=== PATIENT | female | born 1965 | race African-American/Black ===

== ENCOUNTER 2019-08-16 18:34 | Emergency (ER) | payer OTHER ==
[~2019-08-16] VITALS: Ht 157.5 cm; Wt 93.0 kg
[2019-08-16] MEDS ORDERED: FORTAMET500 MG (18:53)
[2019-08-16] MEDS ORDERED: ASPIR 8181 MG (18:53)
[2019-08-16] MEDS ORDERED: ATORVASTATIN CA10 MG (18:56)
== END 2019-08-17 09:00 | disposition left against medical advice (07) ==
LOC: ER 18:34
DX: K92.2 Gastrointestinal hemorrhage, unspecified (principal)